=== PATIENT | female | born 1995 | race Caucasian/White ===

== ENCOUNTER → 2020-11-06 17:20 | Observation (INO) ==
[2020-11-06 16:17] LABS: Bacteria,Urine Few per hpf (None-Few); Bilirubin,Urine Negative (Negative); Blood,Urine Negative (Negative); Clarity,Urine Clear (Clear); Color,Urine Yellow (Yellow); Glucose,Urine (UA) Normal (Normal); Ketones,Urine Negative (Negative); Leukocyte Esterase,Urine Small (Negative); Mucus,Urine Few per lpf (None-Few); Nitrite,Urine Negative (Negative); Protein,Urine 30 mg/dL (Neg-Trace); RBC,Urine 0-3 per hpf (0-3); Specific Gravity,Urine 1.029 (1.010-1.025); Squamous Epithelial Cell,Urine Moderate per hpf (None-Few); Urobilinogen,Urine Normal (Normal)
== END | disposition home or self-care (01) ==
LOC: 1NENULAB
PROVIDERS: ADMIT Obstetrics & Gynecology; ATTEND Obstetrics & Gynecology

== ENCOUNTER → 2021-02-05 11:23 | Observation (INO) ==
[2021-02-05 11:00] LABS: Bilirubin,Urine Negative (Negative); Blood,Urine Negative (Negative); Clarity,Urine Clear (Clear); Color,Urine Colorless (Yellow); Glucose,Urine (UA) Normal (Normal); Ketones,Urine Negative (Negative); Leukocyte Esterase,Urine Negative (Negative); Nitrite,Urine Negative (Negative); Protein,Urine Negative (Neg-Trace); Specific Gravity,Urine 1.008 (1.010-1.025); Urobilinogen,Urine Normal (Normal)
== END | disposition home or self-care (01) ==
LOC: 1NENULAB
PROVIDERS: ADMIT Student in an Organized Health Care Education/Training Program; ATTEND Student in an Organized Health Care Education/Training Program

== ENCOUNTER 2021-02-25 06:17 | Inpatient (IN) ==
[2021-02-25] MEDS ORDERED: Metoclopramide 10 MG/2 ML VIAL IVP PRN (06:24)
[2021-02-25] MEDS ORDERED: Famotidine 20 MG/2 ML VIAL IVP PRN (06:24)
[2021-02-25] MEDS ORDERED: Naloxone 0.4 MG/ML INJ IVP PRN (06:24)
[2021-02-25] MEDS ORDERED: Ondansetron 4 MG/2 ML VIAL IVP PRN (06:24)
[2021-02-25] MEDS ORDERED: *HR* Nalbuphine 10 MG/ML AMPUL IV PRN (06:24)
[2021-02-25] MEDS ORDERED: Lidocaine 1% 20 ML MDV INFILT PRN (06:24)
[2021-02-25] MEDS ORDERED: Ringers Solution, Lactated 1,000 ML IVC SCH (06:30)
[2021-02-25 07:18] LABS: Basophils % 0.3 %; Hemoglobin 10.2 g/dL (11.5-15.4); Monocytes % 6.4 %; Red Cell Distribution Width 14.2 % (11.5-14.5)
[2021-02-25] MEDS: miSOPROStoL 25 MCG TABLET PO PRN ×2 (07:18→11:45)
[2021-02-25 07:20] LABS: Eosinophils # 0.1 K/mcL (0.0-0.6); Eosinophils % 0.7 %; Hematocrit 32.1 % (35.3-44.9); Immature Granulocytes % 0.2 % (0-4); Immature Platelets 6.1 % (1.1-6.1); Lymphocytes % 22.8 %; Mean Corpuscular HGB Conc 31.8 g/dL (31.6-35.5); Mean Corpuscular Hemoglobin 26.1 pg (28.0-33.3); Mean Corpuscular Volume 82.1 fL (83.0-100.0); Mean Platelet Volume 10.5 fL (9.4-12.4); Monocytes # 0.6 K/mcL (0.0-1.3); Neutrophils # 6.1 K/mcL (1.6-8.9); Platelet Count 248 K/mcL (140-400); Red Blood Count 3.91 M/mcL (3.82-4.97); Segmented Neutrophils % 69.6 %; White Blood Count 8.8 K/mcL (4.3-11.1)
[2021-02-25 07:58] LABS: Platelet Estimate Normal (Normal)
[2021-02-25 08:16] LABS: Influenza A PCR Negative (Negative); Influenza B PCR Negative (Negative); Resp. Syncytial Virus PCR Negative (Negative)
[2021-02-25 08:17] LABS: SARS-CoV-2 by PCR (In House) Negative (Negative)
[2021-02-25] MEDS ORDERED: EPHEDrine 50 MG/ML VIAL IVP PRN (10:06)
[2021-02-25] MEDS ORDERED: Epidural Premix (fent/bupiv) 110 ML EP SCH (10:15)
[2021-02-25 11:42] LABS: Amphetamine Screen,Urine Negative ng/mL (Cutoff=1000); Barbiturate Screen,Urine Negative ng/mL (Cutoff=200); Benzodiazepines Screen,Urine Negative ng/mL (Cutoff=200); Cannabinoid Screen,Urine Negative ng/mL (Cutoff = 50); Cocaine Screen,Urine Negative ng/mL (Cutoff= 300); Opiate Screen,Urine Negative ng/mL (Cutoff=300); Phencyclidine Screen,Urine Negative ng/mL (Cutoff=25)
[2021-02-25] MEDS ORDERED: Oxytocin 20 units/ LR 1000 mL 20 UNIT/1,000 ML BAG IVC SCH (16:15)
[2021-02-25] MEDS ORDERED: *HR* FentaNYL (PF) 100 MCG/2 ML VIAL ONE (16:46)
[2021-02-25] MEDS ORDERED: Ropivacaine/PF 0.2% 20 ML VIAL ONE (16:46)
[2021-02-26] MEDS ORDERED: Oxytocin 20 units/ LR 1000 mL 20 UNIT/1,000 ML BAG IVC SCH (02:24)
[2021-02-26] MEDS ORDERED: Oxytocin 20 units/ LR 1000 mL 20 UNIT/1,000 ML BAG IVC ONE (02:24)
[2021-02-26] MEDS ORDERED: Ibuprofen 600 MG TABLET PO SCH (02:24)
[2021-02-26] MEDS ORDERED: Benzocaine/Menthol 56 GM AEROSOL SPRAY TP PRN (02:24)
[2021-02-26] MEDS ORDERED: Rho Immune Globulin 1,500 UNIT SYRINGE IM PRN (02:24)
[2021-02-26] MEDS ORDERED: Lanolin 7 G OINT...G. TP PRN (02:24)
[2021-02-26] MEDS ORDERED: Measles/Mumps/Rubella Vacc 0.5 ML VIAL SQ PRN (02:24)
[2021-02-26] MEDS ORDERED: Ondansetron ODT 4 MG TAB.RAPDIS SL PRN (02:24)
[2021-02-26] MEDS ORDERED: Acetaminophen 325 MG TABLET PO SCH (02:30)
[2021-02-26 05:35] VITALS: O2SAT 100
[2021-02-26 05:35] LABS: Basophils % 0.3 %; Eosinophils % 0.2 %; Hematocrit 31.3 % (35.3-44.9); Hemoglobin 9.6 g/dL (11.5-15.4); Immature Granulocytes % 0.6 % (0-4); Lymphocytes # 2.2 K/mcL (0.6-4.6); Lymphocytes % 18.7 %; Mean Corpuscular HGB Conc 30.7 g/dL (31.6-35.5); Mean Corpuscular Hemoglobin 25.1 pg (28.0-33.3); Mean Corpuscular Volume 81.7 fL (83.0-100.0); Mean Platelet Volume 9.7 fL (9.4-12.4); Monocytes # 0.6 K/mcL (0.0-1.3); Monocytes % 5.6 %; Neutrophils # 8.6 K/mcL (1.6-8.9); Platelet Count 207 K/mcL (140-400); Red Blood Count 3.83 M/mcL (3.82-4.97); Red Cell Distribution Width 14.1 % (11.5-14.5); Segmented Neutrophils % 74.6 %; White Blood Count 11.5 K/mcL (4.3-11.1)
[2021-02-26] MEDS ORDERED: Prenatal Vit/FA 1 EACH TABLET PO SCH (09:00)
[2021-02-26 17:27] VITALS: BP 105/71; PULSE 73; TEMP 98.4
== END 2021-02-26 18:25 | disposition home or self-care (01) | DRG 560 ==
LOC: 1NENULAB 06:17 → 1NENUOBS 20:24
PROVIDERS: ADMIT Obstetrics & Gynecology; ATTEND Obstetrics & Gynecology